=== PATIENT | female | born 1970 | race Caucasian/White ===

== ENCOUNTER → 2017-06-27 | Outpatient (CLI) | payer BC ==
[~2017-06-27] MED LIST: BCPILLS PO
== END | disposition home or self-care (01) ==
LOC: C.LAB1850 08:17
PROVIDERS: ATTEND Family Medicine
DX: Z00.00 Encounter for general adult medical examination without abnormal findings (principal); Z13.220 Encounter for screening for lipoid disorders

== ENCOUNTER → 2017-07-05 | Outpatient (CLI) | payer BC ==
--- NOTE | 2017-07-06 15:23 | MAMMOGRAPHY REPORT ---
BILATERAL DIGITAL SCREENING MAMMOGRAM TOMOSYNTHESIS WITH CAD: 07/05/2017 CLINICAL HISTORY: Routine screening. Patient has no complaints. TECHNIQUE: Breast tomosynthesis in addition to standard 2D mammography was performed. Current study was also evaluated with a Computer Aided Detection (CAD) system. COMPARISON: No prior exams were available for comparison. BREAST COMPOSITION: There are scattered areas of fibroglandular density in both breasts. FINDINGS: No suspicious mass, architectural distortion or cluster of microcalcifications is seen. T here are a few scattered benign-appearing microcalcifications. IMPRESSION: ACR BI-RADS CATEGORY 1: NEGATIVE There is no mammographic evidence of malignancy. Prior outside mammograms are currently being reques sara and if obtained they will be reviewed, compared to the current exam to assess for any more subtle changes, and an addendum will be made to this report. Otherwise, a 1 year screening mammogram is re commended. The patient will receive written notification of the results. Approximately 10% of breast cancers are not detected with mammography. A negative mammographic report should not delay biopsy if a clinically suggestive mass is present. Nai Armstrong M.D. ay/:07/05/2017 17:21:13 Asset Protection Associate: Cristina ALMENDAREZ(Seda)(Shital), [facility] letter sent: Normal 1/2 BI-RADS Code: ACR BI-RADS Category 1: Negative
== END | disposition home or self-care (01) ==
LOC: C.MAMM 11:20
PROVIDERS: ATTEND Family Medicine
DX: Z12.31 Encounter for screening mammogram for malignant neoplasm of breast (principal)

== ENCOUNTER 2020-06-23 09:12 | Observation (INO) ==
[2020-06-23] MEDS ORDERED: SODIUM CHLORIDE 0.9% 500 ML IV STA (09:32)
[2020-06-23] MEDS ORDERED: KETOROLAC TROMETHAMINE 15 MG/ML VIAL IV STA (11:09)
--- NOTE | 2020-06-23 11:12 | Emergency Department Note ---
Impression & Plan Acute appendicitis ED Provider Note CHIEF COMPLAINT: Right-sided abdominal pain HISTORY OF PRESENTING ILLNESS: This is a 50-year-old female who presents to the emergency department by private vehicle with complaint of right-sided abdominal pain for the past 4 days. Patient states the pain was initially intermittent, but it has been getting progressively worse and this morning was severe, states that it woke her up from sleep. She describes the pain as a constant aching, and rates the pain 8/10. She has had some intermittent nausea and decreased appetite, but denies any vomiting. She denies any fevers or chills. She denies any chest pain, chest tightness, shortness of breath, back pain, palpitations, dizziness or syncope, URI symptoms, loss of taste or smell. She denies any co ncerns for exposure to COVID-19. She denies any history of previous abdominal surgeries. REVIEW OF SYSTEMS: A complete 10 point review of systems was reviewed with the patient with pertinent positives and negatives as per history of present illness. All else were negative. PAST MEDICAL HISTORY: Depression, anxiety SOCIAL HISTORY: Lives at home with family, she denies tobacco use ALLERGIES: Reviewed in chart and with the patient PHYSICAL EXAM: CONSTITUTIONAL: Pleasant and cooperative. Nontoxic-appearing and in no acute distress. Mildly dehydrated, but otherwise well appearing and well nourished. HEENT: Normocephalic, atraumatic. Pharynx normal. Tacky mucous membranes. NECK: Supple, full active range of motion without discomfort. RESPIRATORY: Clear to auscultation bilaterally with no wheezing, crackles, rhonchi or stridor. Equal expansion bilaterally. CARDIOVASCULAR: Regular rate and rhythm with no murmurs, rubs or gallops. Normal peripheral perfusion. No edema. GASTROINTESTINAL: Tender to palpation in the right lower quadrant with slight guarding, no rebound tenderness. Abdomen is otherwise nontender, soft nondistended. No palpable masses or HSM. Bowel sounds present in all quadrants. No CVA tenderness bilaterally. MUSCULOSKELETAL: Full range of motion of all joints without discomfort. INTEGUMENTARY: No rash or other significant dermatologic conditions noted. NEUROLOGIC: Alert and oriented X 4 with normal affect. Normal strength and sensation in all 4 extremities. Normal speech. Normal gait observed. ED COURSE AND MEDICAL DECISION MAKING: CC: Patient presenting with complaint of right-sided abdominal pain DIFFERENTIAL DIAGNOSIS: Includes, but not limited to appendicitis, mesenteric adenitis, cholecystitis, cholelithiasis, pancreatitis, GERD, gastritis, gastroenteritis, PUD, ectopic , ovarian torsion, ovarian cyst, TOA, PID, small bowel obstruction, inflammatory bowel disease, IBS, constipation, among others. INTERPRETATION OF LABS: No leukocytosis, no anemia, normal platelets, no significant electrolyte abnormalities, normal renal function, normal liver enzymes and lipase. UA appears contaminated. Urine negative. MEDICATION RECONCILIATION: I attest that I have personally reviewed the patient's current medication list. INITIAL VITAL SIGNS REVIEW: I reviewed the patient's initial vital signs and interpret them as follows: T: Afebrile; BP: Hypertension; HR: Within normal limits; RR: Within normal limit; Pulse Ox: Within normal limits on room air. MDM SUMMARY: Patient was evaluated at bedside, history and physical exam performed. Patient is alert and oriented, in no acute distress, resting calmly in stretcher. She is afebrile and nontoxic-appearing, but does appear to be mildly dehydrated clinically. Abdomen is tender to palpation in the right lower quadrant with slight guarding, but no acute abdomen. She currently denies any nausea and is not vomiting. Orders were placed for labs, urinalysis and urine , IV fluid bolus for hydration, IV Toradol for pain, CT abdomen/pelvis with IV contrast to evaluate for abdominal pain. Patient discussed with Dr. Xavier, who agrees with my assessment, plan, and disposition. Labs and imaging reviewed as above, labs are fairly unremarkable, no leuko cytosis, no renal or liver impairment. UA appears contaminated. Urine negative. CT imaging reviewed noting an acute inflammatory process in the right lower quadrant which likely represents acute perforated appendicitis, no free air or abscess. I spoke on the phone with Tyler Martin PA-C with general surgery, who agrees to evaluate the patient and they will most likely take her to the OR this afternoon. Patient was covered with a dose of IV Zosyn prophylactically. Patient reassessed multiple times throughout ED stay, she has remained hemodynamically stable and afebrile and reports her pain is improved after the Toradol. The patient was updated on all results and plan for admission and probable surgery, all questions were answered to the best of my ability and the patient verbalized understanding and agreement with the plan. The patient was stable at time of admission. The chart was completed utilizing [employer] Speech voice recognition software. Grammatical errors, random word insertions, pronoun errors, and incomplete sentences are an occasional consequence of this system due to software limitations, ambient noise, and hardware issues. Any formal questions or concerns about the content, text, or information contained within the body of this dictation should be directly addressed to the nurse practitioner for clarification. Past Med/Surg History Medical History (Updated 06/24/20 @ 17:09 by BILL Lemos) Anxiety Difficulty reading due to visual problem Insomnia Medical marijuana use for anxiety Migraine headache hx of Osteoarthritis Surgical History (Updated 06/24/20 @ 08:35 by Charlotte Gross RN) History of laparoscopy S/P appendectomy (06/23/20) Laparoscopic Converted to Open Appendectomy - Anastacio Marshall DO, FACS S/P section x2 S/P tonsillectomy and adenoids S/P wisdom tooth extraction Family History Father Colorectal cancer, Onset Age: 72 Hypertension Daughter Diabetes Family history of diabetes mellitus Mother Hypertension Son Family history of diabetes mellitus Other Breast cancer No family history of adverse response to anesthesia Denies family history of Ovarian cancer Prostate cancer Myocardial infarction Social History Smoking Status: Never smoker Second Hand Exposure: No; Hx Alcohol Use: No Hx Substance Use: No Preferred Language: Tamazight Communication Ability: Effective Visual Impairment: No Limitations Hearing Ability: Normal Pest Control Chemical Technician Required: No Beliefs That Will Affect Care: None marital status: Current Living Situation: Spouse Current Living Situation Comment: Lives with and kids current occupational status: employed Other Information That Helps Us Care for You: No Feels Safe at Home: Yes Safety Concerns: Feels Safe At This Time Childhood Exposure to Second-Hand Smoke: No Dental Care, Regularly: Yes Physical Activity Frequency: Does not Exercise Seatbelt Use: always Sunscreen Use: Yes Assistive Devices: None Allergies Allergies Allergy/AdvReac Type Severity Reaction Status Date / Time morphine Allergy Intermediate Hives Verified 06/23/20 14:27 Home Meds Home Medications Medication Instructions Recorded Confirmed ascorbic acid-collagen [Collagen 1 cap PO QAM 06/19/20 06/23/20 Plus Vitamin C] multivitamin 1 tab PO QAM 06/19/20 06/23/20 Previous Rx's Medication Instructions Recorded lorazepam 0.5 mg tablet 0.25 - 0.5 mg PO BID PRN #60 tab 05/30/20 Results & Data (ED) Vital Signs Vital Signs - 24 hr 06/23/20 09:33 Temperature 37.1 C Temperature Source Temporal Artery Scan Pulse Rate 94 H Respiratory Rate 18 Blood Pressure 153/98 H Blood Pressure Mean 116 Pulse Oximetry 95 Sepsis Recent Fever Within 48 Hours No Sepsis New/Unexplained Change in Mental Status No Sepsis Action Taken by Nursing No Action Required Laboratory Data Result diagrams: 06/24/20 05:37 06/24/20 05:37 Lab Results 06/23/20 06/23/20 06/23/20 Range/Units 11:48 11:48 12:00 WBC 9.91 (4.8-10.8) K/uL RBC 4.20 (4.2-5.4) M/uL Hgb 13.6 (12.0-16.0) g/dL Hct 39.8 (37-47) % MCV 94.8 (80-100) fL MCH 32.4 (25-34) pg MCHC 34.2 (32-36) g/dL RDW Std Deviation 43.6 (36.4-46.3) fL RDW Coeff of Trent 12.6 (11.5-14.5) % Plt Count 323 (130-400) K/uL MPV 9.6 (7.4-10.4) fL Sodium 141 (136-145) mmol/L Potassium 4.0 (3.5-5.1) mmol/L Chloride 108 H (98-107) mmol/L Carbon Dioxide 27 (21-32) mmol/L Anion Gap 5.0 (3-11) BUN 12 (7-18) mg/dl Creatinine 0.85 (0.6-1.2) mg/dl Est Cr Clr Drug Dosing 81.3 ml/min Est GFR ( Amer) 92.6 Est GFR (Non-Af Amer) 79.9 BUN/Creatinine Ratio 13.5 (10-20) Glucose 91 (70-99) mg/dl Calcium 9.2 (8.5-10.1) mg/dl Total Bilirubin 0.3 (0.2-1) mg/dl AST 15 (15-37) U/L ALT 20 (12-78) U/L Alkaline Phosphatase 104 (45-117) U/L Total Protein 7.1 (6.4-8.2) gm/dl Albumin 2.9 L (3.4-5.0) gm/dl Globulin 4.2 H (2.5-4.0) gm/dl Albumin/Globulin Ratio 0.7 L (0.9-2) Lipase 84 (73-393) U/L Urine Color Yellow Urine Appearance Clear (Clear) Urine pH 5.0 (4.5-7.5) POC Urine pH (4.5-7.5) Ur Specific [place] 1.014 (1.000-1.030) Urine Protein Negative (Negative) POC Urine Protein (Negative) Urine Glucose (UA) Negative (Negative) POC Ur Glucose (UA) (Normal) Urine Ketones Negative (Negative) POC Urine Ketones (Negative) Urine Blood Negative (Negative) POC Urine Blood (Negative) Urine Nitrite Negative (Negative) POC Urine Nitrite (Negative) Urine Bilirubin Negative (Negative) POC Urine Bilirubin (Negative) Urine Urobilinogen Negative (Negative) POC Urine Urobilinogen (Normal) Ur Leukocyte Esterase Trace H (Negative) POC U Leukocyte Esteras (Negative) Urine WBC (Auto) 5-10 H (0-5) /hpf Urine RBC (Auto) 0-4 (0-4) /hpf U Hyaline Cast (Auto) 0 (0-5) /lpf U Epithel Cells (Auto) >30 H (0-5) /lpf Urine Bacteria (Auto) Negative (Negative) POC Ur Test (NEG) COVID-19 Eval Order SARS-CoV-2 (PCR) (Negative) Influenza Type A (PCR) (Neg) Influenza Type B (PCR) (Neg) RSV (RT-PCR) (Neg) 06/23/20 06/23/20 06/23/20 Range/Units 12:00 14:02 14:02 WBC (4.8-10.8) K/uL RBC (4.2-5.4) M/uL Hgb (12.0-16.0) g/dL Hct (37-47) % MCV (80-100) fL MCH (25-34) pg MCHC (32-36) g/dL RDW Std Deviation (36.4-46.3) fL RDW Coeff of [place] (11.5-14.5) % Plt Count (130-400) K/uL MPV (7.4-10.4) fL Sodium (136-145) mmol/L Potassium (3.5-5.1) mmol/L Chloride (98-107) mmol/L Carbon Dioxide (21-32) mmol/L Anion Gap (3-11) BUN (7-18) mg/dl Creatinine (0.6-1.2) mg/dl Est Cr Clr Drug Dosing ml/min Est GFR ( Amer) Est GFR (Non-Af Amer) BUN/Creatinine Ratio (10-20) Glucose (70-99) mg/dl Calcium (8.5-10.1) mg/dl Total Bilirubin (0.2-1) mg/dl AST (15-37) U/L ALT (12-78) U/L Alkaline Phosphatase (45-117) U/L Total Protein (6.4-8.2) gm/dl Albumin (3.4-5.0) gm/dl Globulin (2.5-4.0) gm/dl Albumin/Globulin Ratio (0.9-2) Lipase (73-393) U/L Urine Color Urine Appearance (Clear) Urine pH (4.5-7.5) POC Urine pH 5 (4.5-7.5) Ur Specific [place] (1.000-1.030) Urine Protein (Negative) POC Urine Protein Trace H (Negative) Urine Glucose (UA) (Negative) POC Ur Glucose (UA) Normal (Normal) Urine Ketones (Negative) POC Urine Ketones Negative (Negative) Urine Blood (Negative) POC Urine Blood 50 H (Negative) Urine Nitrite (Negative) POC Urine Nitrite Negative (Negative) Urine Bilirubin (Negative) POC Urine Bilirubin Negative (Negative) Urine Urobilinogen (Negative) POC Urine Urobilinogen Normal (Normal) Ur Leukocyte Esterase (Negative) POC U Leukocyte Esteras 1+ H (Negative) Urine WBC (Auto) (0-5) /hpf Urine RBC (Auto) (0-4) /hpf U Hyaline Cast (Auto) (0-5) /lpf U Epithel Cells (Auto) (0-5) /lpf Urine Bacteria (Auto) (Negative) POC Ur Test NEG (NEG) COVID-19 Eval Order CovFluRsv at [facility] SARS-CoV-2 (PCR) NEGATIVE (Negative) Influenza Type A (PCR) Negative (Neg) Influenza Type B (PCR) Negative (Neg) RSV (RT-PCR) Negative (Neg) Administered Medications Acetaminophen (Acetaminophen 325 Mg Tab) 650 mg PO Q4H PRN PRN Reason: Pain Stop: 07/24/20 12:22 Last Admin: 06/24/20 12:44 Dose: 650 mg Documented by: [id number] Diphenhydramine HCl (Diphenhydramine 50 Mg/Ml Vial) 12.5 mg IV Q6H PRN PRN Reason: Itching Stop: 07/23/20 19:56 Last Admin: 06/24/20 00:43 Dose: 12.5 mg Documented by: [id number] Hydromorphone HCl (Hydromorphone Inj 0.5 Mg/0.5 Ml Syr) 0.5 mg IV Q1H PRN PRN Reason: Pain Stop: 07/07/20 19:56 Last Admin: 06/24/20 00:44 Dose: 0.5 mg Documented by: [id number] Lactated Ringer's (Lr) 1,000 mls @ 125 mls/hr IV .Q8H YOHANA Stop: 07/23/20 20:59 Last Admin: 06/24/20 12:05 Dose: 125 mls/hr Documented by: [id number] Infusion: 06/24/20 09:53 Dose: 125 mls/hr Documented by: [id number] Infusion: 06/24/20 08:32 Dose: 125 mls/hr Documented by: [id number] Infusion: 06/24/20 03:24 Dose: 0 mls/hr Documented by: [id number] Admin: 06/23/20 20:44 Dose: 125 mls/hr Documented by: [id number] Piperacillin Sod/Tazobactam (Sod 3.375 gm/ Dextrose) 115 mls @ 28.75 mls/hr IV Q8H YOHANA; Protocol Stop: 07/03/20 20:29 Last Admin: 06/24/20 14:00 Dose: 28.8 mls/hr Documented by: [id number] Infusion: 06/24/20 07:39 Dose: 0 mls/hr Documented by: [id number] Admin: 06/24/20 03:24 Dose: 28.8 mls/hr Documented by: [id number] Infusion: 06/24/20 00:51 Dose: 0 mls/hr Documented by: [id number] Admin: 06/23/20 20:44 Dose: 28.8 mls/hr Documented by: [id number] Ketorolac Tromethamine (Ketorolac 30 Mg/Ml Vial) 30 mg IV Q6H PRN PRN Reason: Pain & Pre PT Stop: 06/28/20 19:56 Last Admin: 06/24/20 15:39 Dose: 30 mg Documented by: [id number] Admin: 06/24/20 07:53 Dose: 30 mg Documented by: [id number] Admin: 06/23/20 20:44 Dose: 30 mg Documented by: [id number] Lorazepam (Lorazepam 0.5 Mg Tab) 0.5 mg PO BID PRN PRN Reason: anxiety Stop: 07/23/20 19:56 Last Admin: 06/24/20 07:52 Dose: 0.5 mg Documented by: [id number] Admin: 06/23/20 21:53 Dose: 0.5 mg Documented by: [id number] Discontinued Medications Acetaminophen (Acetaminophen 325 Mg Tab) 650 mg PO Q4H STA Stop: 06/24/20 07:44 Last Admin: 06/24/20 07:52 Dose: 650 mg Documented by: [id number] Bupivacaine HCl (Bupivacaine 0.5 % 5 Mg/1 Ml Mpf 30ml Vial) Confirm Administered Dose 30 ml .ROUTE .STK-MED ONE Stop: 06/23/20 15:53 Last Admin: 06/23/20 18:09 Dose: 30 ml Documented by: [id number] Bupivacaine Liposome (Bupivacaine Liposome 1.3% 266 Mg/20 Ml Vial) Confirm Administered Dose 266 mg .ROUTE .STK-MED ONE Stop: 06/23/20 17:18 Last Admin: 06/23/20 18:09 Dose: 266 mg Documented by: [id number] Sodium Chloride (Nss) 500 mls @ 999 mls/hr IV .Q31M STA Stop: 06/23/20 10:02 Last Infusion: 06/23/20 12:37 Dose: 0 mls/hr Documented by: [id number] Admin: 06/23/20 12:04 Dose: 999 mls/hr Documented by: [id number] Piperacillin Sod/Tazobactam Sod (Zosyn) 4.5 gm in 120 mls @ 240 mls/hr IV NOW ONE Stop: 06/23/20 14:08 Last Infusion: 06/23/20 14:40 Dose: 0 mls/hr Documented by: [id number] Admin: 06/23/20 14:09 Dose: 240 mls/hr Documented by: [id number] Promethazine HCl 12.5 mg/ (Sodium Chloride) 50.5 mls @ 204 mls/hr IV ONCE PRN PRN Reason: PACU Use Only-Nausea/Vomiting Stop: 06/24/20 02:59 Last Infusion: 06/23/20 20:57 Dose: 0 mls/hr Documented by: [id number] Admin: 06/23/20 19:27 Dose: 204 mls/hr Documented by: [id number] Ioversol (Optiray 300 100ml) 90 ml IV ONCE ONE Stop: 06/23/20 12:44 Last Admin: 06/23/20 12:44 Dose: 90 ml Documented by: [id number] Ketorolac Tromethamine (Ketorolac Tromethamine 15 Mg/Ml Vial) 15 mg IV NOW STA Stop: 06/23/20 11:10 Last Admin: 06/23/20 12:05 Dose: 15 mg Documented by: [id number] Ondansetron HCl (Ondansetron Inj 2 Mg/Ml 2 Ml Vial) 4 mg IV ONCE PRN PRN Reason: PACU Use Only-Nausea/Vomiting Stop: 06/23/20 23:55 Last Admin: 06/23/20 18:45 Dose: 4 mg Documented by: [id number] Discharge Plan Visit Data Chief Complaint: Flank Pain Stated Complaint: SEVERE PAIN IN SIDE ED Provider: Yong Xavier ED Midlevel Provider: Dian Reynoso Discharge Problem: Acute appendicitis Patient Disposition: Admitted As Inpatient Discharge Instructions Interventions: ED Discharge Assessment Last Done: 06/23/20 15:24 Discharge Problem: Acute appendicitis Qualifiers: Acute appendicitis type: with localized peritonitis Appendicitis gangrene presence: without gangrene Appendicitis perforation presence: with perforation Appendicitis abscess presence: without abscess Qualified Code(s): K35.32 - Acute appendicitis with perforation and localized peritonitis, without abscess
[2020-06-23 12:07] LABS: Hematocrit (blood only) 39.8 % (37-47); Hemoglobin 13.6 g/dL (12.0-16.0); Mean Corpuscular Hemoglobin 32.4 pg (25-34); Mean Corpuscular Hgb Conc 34.2 g/dL (32-36); Mean Corpuscular Volume 94.8 fL (80-100); Mean Platelet Volume 9.6 fL (7.4-10.4); Platelet Count 323 K/uL (130-400); RDW Coefficient of Variation 12.6 % (11.5-14.5); RDW Standard Deviation 43.6 fL (36.4-46.3); White Blood Count 9.91 K/uL (4.8-10.8)
[2020-06-23 12:11] LABS: POC Urine Bilirubin Negative (Negative); POC Urine Blood 50 (Negative); POC Urine Glucose Normal (Normal); POC Urine Ketones Negative (Negative); POC Urine Leukocytes 1+ (Negative); POC Urine Nitrite Negative (Negative); POC Urine Protein Trace (Negative); POC Urine Urobilinogen Normal (Normal); POC Urine pH 5 (4.5-7.5)
[2020-06-23 12:17] LABS: Appearance Urine Clear (Clear); Bacteria Urine Automated Negative (Negative); Bilirubin Urine Negative (Negative); Blood Urine Negative (Negative); Cast Urine Automated 0 /lpf (0-5); Color Urine Yellow; Epithelial Cell Urine Auto >30 /lpf (0-5); Glucose Urine UA Negative (Negative); Ketones Urine Negative (Negative); Leukocyte Esterase Urine Trace (Negative); Nitrite Urine Negative (Negative); Protein Urine Negative (Negative); RBC Urine Automated 0-4 /hpf (0-4); Specific Gravity Urine 1.014 (1.000-1.030); Urobilinogen Urine Negative (Negative)
[2020-06-23 12:32] LABS: Albumin Level 2.9 gm/dl (3.4-5.0); BUN Creatinine Ratio 13.5 (10-20); Calcium 9.2 mg/dl (8.5-10.1); Creatinine Clr Calc Pharmacy 81.3 ml/min; Est GFR (African American) 92.6; Est GFR (Non-African American) 79.9
[2020-06-23 12:35] LABS: Albumin Globulin Ratio 0.7 (0.9-2); Bilirubin,Total 0.3 mg/dl (0.2-1); Globulin 4.2 gm/dl (2.5-4.0); Total Protein 7.1 gm/dl (6.4-8.2)
[2020-06-23] MEDS ORDERED: OPTIRAY 300 100mL IV ONE (12:43)
--- NOTE | 2020-06-23 13:17 | CT Scan Report ---
CT SCAN OF THE ABDOMEN AND PELVIS WITH IV CONTRAST CLINICAL HISTORY: Right lower quadrant abdominal pain. COMPARISON STUDY: No priors. TECHNIQUE: Following the IV administration of 90 cc of Optiray 300, CT scan of the abdomen and pelvi s is performed from the lung bases to the proximal femora. Images are reviewed in the axial, sagittal , and coronal planes. IV contrast was administered without complication. A dose lowering technique wa s utilized adhering to the principles of ALARA. CT DOSE: 657.88 mGy.cm FINDINGS: Lung bases: The heart is normal in size and without pericardial effusion. The lung bases are clear. Liver: The contrast-enhanced liver is normal in size, contour, and attenuation. Focal fatty infiltrat ion is seen adjacent to the falciform ligament. There is no intrahepatic biliary ductal dilatation. T he hepatic veins and portal veins are patent. An 8 mm cyst is noted in the right lobe. Gallbladder: Unremarkable. Spleen: Normal in size and attenuation. Pancreas: Unremarkable. Adrenal glands: Unremarkable. Kidneys: The contrast enhanced kidneys are normal in size and without hydronephrosis. The kidneys enh ance symmetrically. Abdominal vasculature: The abdominal aorta is normal in course and caliber. Bowel: There is no bowel obstruction. There is an inflammatory process centered in the right lower qu adrant involving the cecum and terminal ileum. A portion of an abnormal appendix is likely seen on im age #270 measuring 1.1 cm in diameter. No organized fluid collection is seen to indicate abscess. Peritoneum: There is no intraperitoneal free air or abdominal ascites. There is a small fat-containin g umbilical hernia. Lymphadenopathy: Mildly enlarged mesenteric lymph nodes measure up to 9 mm in short axis. Pelvic viscera: The bladder and uterus are normal as visualized. A curvilinear tubular and fluid-fill ed structure in the left lower quadrant on image #329 measures up to 5 cm. This appears to connect to the left ovary and is typical in appearance for hydrosalpinx. Skeletal structures: No lytic or blastic lesions are seen. Sclerotic change is noted in the right sac roiliac joint. IMPRESSION: 1. There is an acute inflammatory process identified in the right lower quadrant, with an abnormal ap pendix suspected. This likely represents acute perforated appendicitis, and this is the diagnosis of exclusion. A primary ileal or cecal abnormality is considered less likely. Surgical assessment is adv ised. 2. No intraperitoneal free air is identified and there is no organized fluid collection to suggest ab scess. 3. Mildly enlarged mesenteric lymph nodes are likely reactive. 4. There is evidence of hydrosalpinx in the left pelvis. Nonemergent pelvic ultrasound and gynecology follow-up is recommended. 5. Additional findings as above. ACT 112: Positive. There are findings on this exam that require communication between the performing entity and the patient following Patient Test Result Information Act ([place] Act 112) guidelines. Electronically signed by: Fabian Fritz M.D. 06/23/2020 1:15 PM
[2020-06-23] MEDS ORDERED: PIPERACILL/TAZOBAC CONSULT ACTIVE PRN ×2 (13:39→19:57)
[2020-06-23] MEDS ORDERED: PIPERACILLIN/TAZOBACTAM 4.5 GM/120 ML BAG IV ONE (13:39)
--- NOTE | 2020-06-23 14:29 | History & Physical Report ---
Date of Service June 23, 2020 Assessment & Plan (1) Acute appendicitis: Admission and Anticipated Discharge Date Admission Date: Likely early perforation by CT, no fluid or abscess. Will plan for laparoscopic appendectomy this afternoon by Dr. Marshall. History of Present Illness Primary Care Provider: Micheline Quezada MD 50 y/o female with abdominal pain that began 4 days ago and has been increasing. Woke up this morning with severe RLQ pain. No fevers or chills. Was scheduled for screening colonoscopy later this week and had recent COVID tesing. Had some tea early this morning, nothing to eat since yesterday. Allergies Allergy/AdvReac Type Severity Reaction Status Date / Time morphine Allergy Intermediate Hives Verified 06/23/20 14:27 Home Medications Medication Instructions Recorded Confirmed Type lorazepam 0.5 mg tablet 0.25 - 0.5 mg PO BID PRN #60 tab 05/30/20 06/23/20 Rx ascorbic acid-collagen [Collagen 1 cap PO QAM 06/19/20 06/23/20 History Plus Vitamin C] multivitamin 1 tab PO QAM 06/19/20 06/23/20 History Past Med/Surg History Medical History Anxiety Difficulty reading due to visual problem Insomnia Medical marijuana use for anxiety Migraine headache hx of Osteoarthritis Surgical History History of laparoscopy S/P section x2 S/P tonsillectomy and adenoids S/P wisdom tooth extraction Family History Father Colorectal cancer, Onset Age: 72 Hypertension Daughter Diabetes Family history of diabetes mellitus Mother Hypertension Son Family history of diabetes mellitus Other Breast cancer No family history of adverse response to anesthesia Denies family history of Ovarian cancer Prostate cancer Myocardial infarction Social History Smoking Status: Never smoker Second Hand Exposure: No; Hx Alcohol Use: Yes Alcohol type: beer, wine and hard liquor Alcohol Intake Frequency: 4 or More x per/Week Hx Substance Use: Yes (smokes marijuana (medical marijuana card)) Prescribed Medications: Marijuana Preferred Language: [place] Communication Ability: Effective Visual Impairment: No Limitations Hearing Ability: Normal Communications Department Chair Required: No Beliefs That Will Affect Care: None marital status: Current Living Situation: Spouse and Family Current Living Situation Comment: Lives with and kids current occupational status: employed Feels Safe at Home: Yes Childhood Exposure to Second-Hand Smoke: No Dental Care, Regularly: Yes Physical Activity Frequency: Does not Exercise Seatbelt Use: always Sunscreen Use: Yes Assistive Devices: Contacts Review of Systems Constitutional: no fever and no chills Gastrointestinal: + abdominal pain; no nausea and no vomiting Physical Exam Constitutional: WD/WN, vitals as above Respiratory: normal respiratory effort, lungs clear to auscultation Cardiovascular: RRR, no murmur, no edema Gastrointestinal (Abdomen): Inspection/Auscultation: abdomen not distended Percussion/Palpation: + abdomen tender (RLQ), + guarding and abdomen soft Results & Data Results & Data ([facility]) Vital Signs (Past 12 Hours) Vital Signs Temp Pulse Resp BP BP Pulse Ox 06/23/20 14:02 150/93 H 06/23/20 11:13 153/98 H 06/23/20 09:33 37.1 C 94 H 18 153/98 H 95 Supervising Physician Co-Signing Physician Notes Patient seen and examined, labs and imaging reviewed, agree with above. 50-year-old otherwise healthy female started with right lower quadrant abdominal pain on that is progressively worsened. On exam she is afebrile with stable vitals. Her abdomen is soft, but tender to palpation in the right lower quadrant with localized guarding. WBC normal. Personally viewed the CT scan and agree with the interpretation of a dilated appendix with stranding and extraluminal air consistent with a likely perforated appendicitis with no phlegmon or abscess. We discussed her options for the treatment of perforated acute appendicitis to include antibiotics versus surgery. At this point we will plan for surgery, but I did inform her that if there is any significant inflammation we would not proceed with ileocecectomy unless absolutely necessary. Plan for laparoscopic appendectomy, possible open The risk of the procedure were discussed to include but not limited to bleeding, infection, open surgery, abscess, demonstrating structures, need for future more extensive surgery, and the risk of anesthesia Antibiotics being administered in ER She was scheduled for a colonoscopy on , and this will have to be delayed for 4 to 6 weeks. Of note she did have a negative Covid test that was performed on in preparation for her colonoscopy. PG Care Time/CCT Total # of Minutes Spent Total Time Spent with Patient: Total time spent is greater than 50% in coordination of care (as documented) at patient's floor/unit and/or counseling patient: Coding Level of Care Code None Diagnoses Acute appendicitis K35.80
--- NOTE | 2020-06-23 15:08 | Anesthesiology Consultation ---
Date of Service June 23, 2020 Assessment & Plan (1) Encounter for pre-operative examination: Chart Review Chart Review: Acceptable Risk for Surgery History Surgery Operation Date: 06/23/20 09:00 Proposed Procedures p Laparoscopic Appendectomy - Anastacio Marshall DO, FACS Height/Weight Height: 5 ft 3 in Weight: 84.1 kg Allergies Allergy/AdvReac Type Severity Reaction Status Date / Time morphine Allergy Intermediate Hives Verified 06/23/20 14:27 Medications Home Medications Medication Instructions Recorded Confirmed Last Taken lorazepam 0.5 mg tablet 0.25 - 0.5 mg PO BID PRN #60 tab 05/30/20 06/23/20 Unknown ascorbic acid-collagen [Collagen 1 cap PO QAM 06/19/20 06/23/20 06/22/20 Plus Vitamin C] multivitamin 1 tab PO QAM 06/19/20 06/23/20 06/23/20 Past Medical History Medical History Anxiety Difficulty reading due to visual problem Insomnia Medical marijuana use for anxiety Migraine headache hx of Osteoarthritis Past Family History Family History Father Colorectal cancer, Onset Age: 72 Hypertension Daughter Diabetes Family history of diabetes mellitus Mother Hypertension Son Family history of diabetes mellitus Other Breast cancer No family history of adverse response to anesthesia Denies family history of Ovarian cancer Prostate cancer Myocardial infarction Past Surgical History Surgical History History of laparoscopy S/P section x2 S/P tonsillectomy and adenoids S/P wisdom tooth extraction Social History Smoking Status: Never smoker Hx Alcohol Use: Yes Alcohol type: beer, wine and hard liquor alcohol intake frequency: a few times a week Hx Substance Use: Yes (smokes marijuana (medical marijuana card)) substance use type: marijuana Physical Exam Vital Signs Last Vital Signs Temp 37.1 C 06/23/20 09:33 Pulse 94 H 06/23/20 09:33 Resp 18 06/23/20 09:33 BP 150/93 H 06/23/20 14:02 Pulse Ox 95 06/23/20 09:33 Testing Laboratory Results 06/23/20 11:48 06/23/20 11:48 Urine Color Yellow 06/23/20 12:00 Urine Appearance Clear (Clear) 06/23/20 12:00 Urine pH 5.0 (4.5-7.5) 06/23/20 12:00 Ur Specific Zortman 1.014 (1.000-1.030) 06/23/20 12:00 Urine Protein Negative (Negative) 06/23/20 12:00 Urine Glucose (UA) Negative (Negative) 06/23/20 12:00 Urine Ketones Negative (Negative) 06/23/20 12:00 Urine Nitrite Negative (Negative) 06/23/20 12:00 Ur Leukocyte Esterase Trace (Negative) H 06/23/20 12:00 Urine WBC (Auto) 5-10 /hpf (0-5) H 06/23/20 12:00 Urine RBC (Auto) 0-4 /hpf (0-4) 06/23/20 12:00 U Hyaline Cast (Auto) 0 /lpf (0-5) 06/23/20 12:00 U Epithel Cells (Auto) >30 /lpf (0-5) H 06/23/20 12:00 Urine Bacteria (Auto) Negative (Negative) 06/23/20 12:00 06/23/20 12:00 POC Ur Test NEG
[2020-06-23 15:30] LABS: Influenza A virus by PCR Negative (Neg); Influenza B virus by PCR Negative (Neg); RSV by PCR Negative (Neg); SARS CoV2 RNA(COVID-19) InHosp NEGATIVE (Negative)
[2020-06-23] MEDS ORDERED: MIDAZOLAM HCL 1 MG/ML 2ML VIAL ONE (15:45)
[2020-06-23] MEDS ORDERED: fentaNYL citrate 100 MCG/2 ML VIAL ONE ×2 (15:45→16:43)
[2020-06-23] MEDS ORDERED: SUGAMMADEX SODIUM 200 MG/2 ML VIAL IV ONE (15:49)
[2020-06-23] MEDS ORDERED: BUPIVACAINE 0.5 % 5 MG/1 ML MPF 30ML VIAL ONE (15:52)
[2020-06-23] MEDS ORDERED: ONDANSETRON INJ 2 MG/ML 2 ML VIAL IV PRN ×2 (15:55→19:57)
[2020-06-23] MEDS ORDERED: HYDROmorphone INJ 2 MG/ML SYR/VIAL IV PRN (15:55)
[2020-06-23] MEDS ORDERED: ATROPINE SULFATE 0.1 MG/ML 10ML SYR IV PRN (15:55)
[2020-06-23] MEDS ORDERED: ePHEDrine sulfate 50 MG/ML AMP IV PRN (15:55)
[2020-06-23] MEDS ORDERED: fentaNYL citrate 100 MCG/2 ML VIAL IV PRN (15:55)
[2020-06-23] MEDS ORDERED: ROCURONIUM BROMIDE 10 MG/ML 5 ML VIAL IV ONE (16:18)
[2020-06-23] MEDS ORDERED: LIDOCAINE HCL 2% 2 ML VIAL/AMP(20MG/ML) INFIL ONE (16:18)
[2020-06-23] MEDS ORDERED: DEXAMETHASONE SOD INJ 4 MG/ML VIAL ONE (16:18)
[2020-06-23] MEDS ORDERED: ONDANSETRON INJ 2 MG/ML 2 ML VIAL ONE (16:18)
[2020-06-23] MEDS ORDERED: PROPOFOL IV EMULSION 10 MG/ML 20 ML VIAL IV ONE (16:18)
[2020-06-23] MEDS ORDERED: KETAMINE 50 MG/5 ML SYRINGE ONE (17:12)
[2020-06-23] MEDS ORDERED: BUPIVACAINE LIPOSOME 1.3% 266 MG/20 ML VIAL ONE (17:17)
[2020-06-23] MEDS ORDERED: HYDROmorphone INJ 2 MG/ML SYR/VIAL ONE (17:30)
--- NOTE | 2020-06-23 18:25 | Operative Report ---
PG Post Operative Report Pre & Post Diagnosis Operation Date: 06/23/20 09:00 Pre-Op Diagnosis: Perforated Appendix Post-Op Diagnosis: Perforated Appendix I identified the patient and participated in the time-out.: Yes Procedure Operation Date: 06/23/20 09:00 Actual Procedures p Laparoscopic Converted to Open Appendectomy(Not Applicable) - Anastacio love DO, FACS Surgeon Anastacio Marshall DO, SAMREEN Test Driver Greg Martin Estimated Blood Loss 10 Findings Consistent with Post-Op Diagnosis Perforated retrocecal appendix, failed to make progress laparoscopically. Right colon mobilized until it reached midline. Infraumbilical incision extended, appendectomy completed open. Specimens Appendix Drains 10 mm MICHAEL drain right lower quadrant Anesthesia Type General Complications none Disposition Accompanied Patient To Recovery: No Disposition: Recovery Room Indications 50-year-old female with perforated appendicitis on CT imaging with symptoms starting 5 days ago, plan for laparoscopic appendectomy, possible open. The risks of the procedure were discussed, all questions were answered, and the patient agreed to proceed with surgery as planned. Description of Procedure The patient was properly identified, consented, and taken to the operating room where she was placed in the supine position. General endotracheal anesthesia was induced. SCDs and a safety belt were placed. Preoperative antibiotics were administered. A Montano catheter was not placed. The patient's abdomen was prepped and draped in the standard sterile fashion. Surgical timeout was performed and all parties were in agreement that this was the correct patient and procedure to be performed and we continued as planned. A curvilinear infraumbilical incision was made with electrocautery and deepened down to the fascia with blunt dissection. The base of the umbilicus was grasped with a Mara and elevated towards the ceiling. An incision was made in the midline fascia with a knife and entry into the peritoneum was confirmed. Stay suture of 0 Vicryl was placed and a Serra trocar was inserted. The abdomen was insufflated with carbon dioxide which the patient tolerated without incident. The laparoscope was inserted and no damage from initial trocar placement was noted, no gross abnormalities were noted within the 4 quadrants the abdomen. 5 mm ports were then placed in the left lower quadrant with care not to damage the epigastric vessels, and in the suprapubic midline with care not to damage the bladder. The patient was placed in Trendelenburg position and rotated towards the left. The small bowel was swept away from the right lower quadrant. The appendix appeared to be retrocecal. There was significant inflammation around the cecum and small bowel. We were able to identify what we thought was the base of the appendix and dissected away from some of the surrounding structures. This was slow and tedious. Though we did not run into trouble, we were not making much progress. We attempted to mobilize the right colon by taking down the white line of Toldt. As we mobilized the colon enough to reach the midline, and still failed to progress any further laparoscopically without the risk of injury, we elected to convert to an open procedure. Laparoscopy was ceased and the infraumbilical incision was extended inferiorly. A wound protector was placed. The cecum was grasped and brought into the wound and we were able to identify the appendix. What we initially thought was the base of the appendix was actually the tip. Using careful dissection along with some finger fracture we were able to free the appendix up from the surrounding tissue. There was some purulent drainage represent an abscess. The mesoappendix was controlled with 3-0 silk ligatures. The base of the appendix appeared healthy and soft. A rodriguez loaded endoscopic stapler was then used to divide the appendix at its base. Hemostasis was good. The appendix was passed off the table as specimen. During the dissection a small area along the terminal ileum involving ligament of Treves was dissected away. There was a small serosal tear there. This was closed with interrupted silk Lembert sutures. The right lower quadrant and pelvis were irrigated. A 10 mm flat MICHAEL drain was placed in the right lower quadrant and exited through the left lower quadrant incision. This was secured in place with a 2-0 nylon suture. The fascia was then closed with a running 0 PDS suture x2. Exparel mixed with 0.5% Marcaine was injected in the fascia and subcutaneous tissues. The wound was irrigated. The midline wound was closed with interrupted 3-0 Vicryl deep dermal sutures followed by henrietta. The remaining 5 mm port site was closed with a staple. Sterile dressings were applied. The patient was extubated in the operating room and taken to the PACU where she recovered without apparent incident. All sponge, instrument and needle counts were correct at the conclusion of the procedure. The patient tolerated the procedure well. The physician's captain assistant was present and scrubbed for the entire to the case. He was critical in positioning the patient, prepping and draping, retraction and exposure, driving the laparoscope, removal of the appendix and control of the mesoappendix, closure the incisions, placement of the dressings. I attest to the content of the Intraoperative Record and any orders documented therein. Any exceptions are noted below.
[2020-06-23] MEDS ORDERED: GLYCOPYRROLATE 0.2 MG/ML VIAL ONE (18:36)
[2020-06-23] MEDS ORDERED: NEOSTIGMINE METHYLSULFATE 5 MG/5 ML SYR ONE (18:36)
[2020-06-23] MEDS ORDERED: PROMETHAZINE HCL 12.5 MG in SODIUM CHLORIDE 0.9% 50 ML IV PRN (18:58)
--- NOTE | 2020-06-23 19:18 | Anesthesiology Progress Note ---
Date of Service June 23, 2020 Anesthesia Post Procedure Vital Signs Vital Signs: Temp Pulse Pulse Pulse Resp BP BP 06/23/20 19:00 89 12 154/90 H 06/23/20 18:50 89 14 151/92 H 06/23/20 18:40 87 13 146/89 H 06/23/20 18:31 36.8 C 89 14 136/83 06/23/20 15:44 37.5 C 82 16 125/85 06/23/20 14:02 150/93 H 06/23/20 11:13 153/98 H 06/23/20 09:33 37.1 C 94 H 18 153/98 H Pulse Ox 06/23/20 19:00 89 L 06/23/20 18:50 97 06/23/20 18:40 96 06/23/20 18:31 98 06/23/20 15:44 97 06/23/20 14:02 06/23/20 11:13 06/23/20 09:33 95 Pain Intensity Abdomen: Pain Intensity: 3 Transfer of Care Handoff Completed per policy Notes Mental Status: alert / awake / arousable and participated in evaluation Patient Amnestic to Procedure: Yes Nausea / Vomiting: adequately controlled Pain: adequately controlled Airway Patency, RR, SpO2: stable & adequate BP & HR: stable & adequate Hydration State: stable & adequate Anesthetic Complications: no major complications apparent and Pt Satisfied with anesthetic care
[2020-06-23] MEDS: LACTATED RINGER'S 1,000 ML IV SCH (20:44)
[2020-06-23] MEDS: PIPERACILLIN/TAZOBACTAM 3.375 GM in DEXTROSE 5% 100 ML IV SCH (20:44)
[2020-06-23] MEDS: KETOROLAC 30 MG/ML VIAL IV PRN (20:44)
[2020-06-23] MEDS: LORazepam 0.5 MG TAB PO PRN (21:53)
[2020-06-24] MEDS: diphenhydrAMINE 50 MG/ML VIAL IV PRN ×2 (00:43→19:28)
[2020-06-24] MEDS: HYDROmorphone INJ 0.5 MG/0.5 ML SYR IV PRN ×2 (00:44→18:25)
[2020-06-24] MEDS: PIPERACILLIN/TAZOBACTAM 3.375 GM in DEXTROSE 5% 100 ML IV SCH ×3 (03:24→19:28)
[2020-06-24 06:25] LABS: Hematocrit (blood only) 37.5 % (37-47); Hemoglobin 12.9 g/dL (12.0-16.0); Immature Granulocytes # (auto) 0.02 K/uL (0.00-0.02); Immature Granulocytes % (auto) 0.2 %; Lymphocytes # (auto) 0.78 K/uL (1.2-3.4); Lymphocytes % (auto) 6.8 %; Mean Corpuscular Hemoglobin 32.7 pg (25-34); Mean Corpuscular Hgb Conc 34.4 g/dL (32-36); Mean Corpuscular Volume 94.9 fL (80-100); Monocytes # (auto) 0.74 K/uL (0.11-0.59); Monocytes % (auto) 6.4 %; Neutrophils # (auto) 9.98 K/uL (1.4-6.5); Neutrophils % (auto) 86.6 %; Platelet Count 375 K/uL (130-400); RDW Coefficient of Variation 12.3 % (11.5-14.5); Red Blood Count 3.95 M/uL (4.2-5.4); White Blood Count 11.52 K/uL (4.8-10.8)
[2020-06-24 06:55] LABS: BUN Creatinine Ratio 9.8 (10-20); Calcium 8.1 mg/dl (8.5-10.1); Creatinine Clr Calc Pharmacy 92.4 ml/min; Est GFR (African American) 104.3; Potassium 4.1 mmol/L (3.5-5.1)
[2020-06-24] MEDS ORDERED: ACETAMINOPHEN 325 MG TAB PO STA (07:43)
--- NOTE | 2020-06-24 07:49 | Surgery Progress Note ---
Date of Service June 24, 2020 Assessment & Plan (1) Acute appendicitis: WBC 11 continue IV Zosyn labs in AM clears for now Admission and Anticipated Discharge Date Admission Date: June 23, 2020 Supervising Physician Co-Signing Physician Notes Patient seen and examined, labs reviewed, agree with above. POD #1 laparoscopic converted to open appendectomy for perforated retrocecal appendicitis. Overall doing well, had some pretty significant pain overnight but was controlled with meds. The pain is steadily improving. She is feeling a little hungrier now, and the pain she had upon admission is gone. On exam she is afebrile with stable vitals. Her abdomen is soft, appropriately tender to palpation. Dressing with some strikethrough but no evidence of infection. White blood cell count 11.52, other labs unremarkable. We will continue on IV antibiotics, advance diet as tolerated, keep MICHAEL in place. Potential discharge in 24 to 48 hours if patient continues to improve. She will be discharged on oral antibiotics. Subjective c/o pain, little better this AM, no nausea Physical Exam Gastrointestinal (Abdomen): Inspection/Auscultation: + abdominal surgical drain present (100 cc total) Percussion/Palpation: abdomen soft Results & Data ([facility]) Vital Signs (Past 12 Hours) Vital Signs Temp Pulse Pulse Resp BP BP Pulse Ox 06/24/20 07:45 36.8 C 83 16 130/80 93 06/24/20 04:22 36.8 C 97 H 18 115/74 92 06/23/20 23:37 36.9 C 96 H 18 126/83 96 06/23/20 21:35 36.9 C 92 H 18 129/80 97 06/23/20 20:35 36.9 C 93 H 17 156/94 H 99 06/23/20 20:05 36.7 C 89 18 157/90 H 98 PG Care Time/CCT Total # of Minutes Spent Total Time Spent with Patient: Total time spent is greater than 50% in coordination of care (as documented) at patient's floor/unit and/or counseling patient: Coding Level of Care Code None Diagnoses Acute appendicitis K35.80
[2020-06-24] MEDS: LORazepam 0.5 MG TAB PO PRN (07:52)
[2020-06-24] MEDS: KETOROLAC 30 MG/ML VIAL IV PRN ×2 (07:53→15:39)
[2020-06-24] MEDS: LACTATED RINGER'S 1,000 ML IV SCH ×2 (12:05→19:28)
[2020-06-24] MEDS: ACETAMINOPHEN 325 MG TAB PO PRN (12:44)
[2020-06-25] MEDS: PIPERACILLIN/TAZOBACTAM 3.375 GM in DEXTROSE 5% 100 ML IV SCH ×2 (03:24→12:53)
[2020-06-25] MEDS: LACTATED RINGER'S 1,000 ML IV SCH ×2 (03:24→09:07)
[2020-06-25] MEDS: KETOROLAC 30 MG/ML VIAL IV PRN (03:24)
[2020-06-25] MEDS: LORazepam 0.5 MG TAB PO PRN (05:28)
[2020-06-25 07:16] LABS: Basophils # (auto) 0.02 K/uL (0-0.2); Basophils % (auto) 0.2 %; Eosinophils # (auto) 0.34 K/uL (0-0.5); Eosinophils % (auto) 4.2 %; Hematocrit (blood only) 34.4 % (37-47); Hemoglobin 11.5 g/dL (12.0-16.0); Immature Granulocytes # (auto) 0.02 K/uL (0.00-0.02); Immature Granulocytes % (auto) 0.2 %; Lymphocytes # (auto) 2.27 K/uL (1.2-3.4); Mean Corpuscular Hemoglobin 32.3 pg (25-34); Mean Corpuscular Hgb Conc 33.4 g/dL (32-36); Mean Corpuscular Volume 96.6 fL (80-100); Mean Platelet Volume 9.4 fL (7.4-10.4); Monocytes # (auto) 0.74 K/uL (0.11-0.59); Monocytes % (auto) 9.1 %; Neutrophils # (auto) 4.73 K/uL (1.4-6.5); Neutrophils % (auto) 58.3 %; Platelet Count 330 K/uL (130-400); RDW Coefficient of Variation 12.8 % (11.5-14.5); RDW Standard Deviation 45.4 fL (36.4-46.3); Red Blood Count 3.56 M/uL (4.2-5.4); White Blood Count 8.12 K/uL (4.8-10.8)
[2020-06-25] MEDS: ACETAMINOPHEN 325 MG TAB PO PRN (07:31)
[2020-06-25 07:54] LABS: BUN Creatinine Ratio 10.1 (10-20); Calcium 8.4 mg/dl (8.5-10.1); Creatinine Clr Calc Pharmacy 84.7 ml/min; Est GFR (African American) 93.9; Potassium 3.5 mmol/L (3.5-5.1)
[2020-06-25] MEDS ORDERED: oxyCODONE HCL IR 5 MG TAB (IMMEDIATE RELEASE) PO PRN ×2 (08:29)
[2020-06-25] MEDS ORDERED: ACETAMINOPHEN 325 MG TAB PO SCH ×2 (08:30→15:00)
[2020-06-25] MEDS: KETOROLAC 30 MG/ML VIAL IV SCH ×2 (09:03→15:06)
--- NOTE | 2020-06-25 09:56 | Surgery Progress Note ---
Date of Service June 25, 2020 Assessment & Plan (1) Acute appendicitis: POD#2 laparoscopic converted to open appendectomy WBC 8.1, VSS and patient afebrile Complaining of abdominal pain this AM, tender robert-incisionally. No signs of infection. MICHAEL drain serosang For pain control we will schedule her Toradol and Tylenol, add prn Oxycodone and keep prn IV dilaudid for breakthrough Continue IV abx, diet as tolerates, encourage ongoing activity, Will check up on later today, if improvement in symptoms can consider discharge later today vs tomorrow Admission and Anticipated Discharge Date Admission Date: June 23, 2020 Supervising Physician Co-Signing Physician Notes Patient seen and examined, labs reviewed, agree with above. POD #2 laparoscopic converted to open appendectomy for perforated retrocecal appendicitis. Overall doing well, had some pretty significant pain again overnight and this morning. She has been walking and tolerating diet. On exam she is afebrile with stable vitals. Her abdomen is soft, appropriately tender to palpation. Dressings removed, incisions with henrietta, no e/o infection. MICHAEL with ss drainage. White blood cell count 8.12 with no left shift, other labs unremarkable. We will continue on IV antibiotics, diet as tolerated, keep MICHAEL in place. Main issue is pain control, will schedule toradol and add oxycodone IR for pain control. Potential discharge in 24 to 48 hours if patient continues to improve. She will be discharged on oral antibiotics. Subjective Patient seen, tearful this AM in pain in her lower abdomen. Has been taking prn Tylenol, toradol, and dilaudid. Physical Exam Physical Exam: awake/alert Gastrointestinal (Abdomen): Inspection/Auscultation: + abdominal surgical incision (c/d/i with surgical henrietta in place. no signs of infection) and + abdominal surgical drain present (serosang. 10cc) Percussion/Palpation: + abdomen tender (robert-incisionally) and abdomen soft Results & Data ([facility]) Vital Signs (Past 12 Hours) Vital Signs Temp Pulse Resp BP Pulse Ox 06/25/20 07:20 36.7 C 73 18 116/79 90 06/25/20 00:34 36.8 C 70 18 115/75 93 PG Care Time/CCT Total # of Minutes Spent Total Time Spent with Patient: Total time spent is greater than 50% in coordination of care (as documented) at patient's floor/unit and/or counseling patient: Coding Level of Care Code None Diagnoses Acute appendicitis K35.32 Acute appendicitis type: with localized peritonitis Appendicitis abscess presence: without abscess Appendicitis gangrene presence: without gangrene Appendicitis perforation presence: with perforation (1) Acute appendicitis Acute appendicitis type: with localized peritonitis Appendicitis abscess presence: without abscess Appendicitis gangrene presence: without gangrene Appendicitis perforation presence: with perforation Qualified Code(s): K35.32 - Acute appendicitis with perforation and localized peritonitis, without abscess
--- NOTE | 2020-06-26 11:51 | Discharge Summary ---
Date of Service June 26, 2020 Admission HPI Per Admitting Provider 50 y/o female with abdominal pain that began 4 days ago and has been increasing. Woke up this morning with severe RLQ pain. No fevers or chills. Was scheduled for screening colonoscopy later this week and had recent COVID tesing. Had some tea early this morning, nothing to eat since yesterday. Principal Diagnosis Perforated appendicitis Discharge Exam Constitutional WD/WN, vitals as above Gastrointestinal (Abdomen) Inspection/Auscultation: + abdominal surgical incision (clean, dry); abdomen not distended Percussion/Palpation: abdomen soft Discharge Data Allergies Allergy/AdvReac Type Severity Reaction Status Date / Time morphine Allergy Intermediate Hives Verified 06/23/20 14:27 Consultations 06/23/20 14:35 ED Decision to Admit Stat Procedures Performed Operation Date: 06/23/20 09:00 Actual Procedures p Attempted Laparoscopic Converted (Not Applicable) - Anastacio Marshall DO, FACS s Appendectomy(Not Applicable) - Anastacio Marshall DO, FACS Ordered Studies 06/23/20 11:09 CT abd pelvis IV con only Stat Hospital Course (1) Acute appendicitis: 50 y/o female presented to the ER with abdominal pain for 4 days. White count was 9,[address] was consistent with acute appendicitis, likely perforated. She was taken to the operating room for laparoscopic appendectomy which was converted to open due to inflammation related to perforation. She was transferred to the surgical floor and continued on IV Zosyn. Her pain control was marginal on POD 1 and her white count had risen slightly to 11. By the second day she was tolerating oral analgesics and her white count had improved to 8. MICHAEL drain was removed and she was stable for discharge home on oral antibiotics. Total Time Total Time Spent Total Time Spent (In Minutes): 15 Discharge Plan Discharge Items Patient Disposition: Home - Self-Care Reason For Visit: APPENDICITIS Discharge Diagnosis: laparoscopic converted to open appendectomy Activity: Per Instructions section Lifting: No more than 10 pounds Bathing Comment: may shower; no soaking in tubs/pools Exercise/Sports: Wait until after follow-up appointment Driving/Machine Use: do not resume driving while taking narcotics for pain Non-emergency contact: Surgeon Call non-emergency contact if: you have any medication questions, your symptoms worsen, your pain is not controlled, your pain is worsening, your pain is concerning for you, you have a fever, your temperature is above 101.5, your wound has increased redness, your wound has increased drainage and your wound pain has increased Follow-up/Referrals: Micheline Quezada MD [Primary Care Provider] - Anastacio Marshall, SAMREEN PICHARDO [Physician] - (Please call to schedule follow up in clinic within 1-2 weeks) Diet: Regular Addtl Attending Provider Instructions: You may purchase Tylenol and/or Ibuprofen over the counter if needed for additional pain control. - Tylenol 650mg orally every 4-6 hours, as needed for pain. Do NOT exceed >3grams of Acetaminophen within a 24 hour time period. - Ibuprofen 400mg-600mg orally every 6-8 hours, as needed for pain. Take with food. Please change your surgical drain site daily with dry 4x4 gauze and adhere with medical tape until it has healed. You have surgical henrietta in place that will be removed at your follow up appointment Please complete the full course of antibiotic prescribed to you Pending Studies at Discharge: Yes Studies:: surgical pathology Stand-Alone Forms: [facility], Work/School Release (Inpt), Smoking Cessation Medications and DC Order Prescriptions: New amoxicillin-pot clavulanate [Augmentin] 875-125 mg tablet 1 tab PO BID Qty: 14 RF: 0 oxycodone 5 mg tablet 5 - 10 mg PO .[id number] PRN (Reason: pain, for initial therapy, max 6 tabs per day) Qty: 15 RF: 0 Continued lorazepam 0.5 mg tablet 0.25 - 0.5 mg PO BID PRN (Reason: anxiety) Qty: 60 RF: 0 multivitamin Tablet 1 tab PO QAM RF: 0 Collagen Plus Vitamin C 125-740 mg Capsule 1 cap PO QAM RF: 0 Discharge Orders: Discharge Order (Routine); Ordered 06/25/20 Ordered By: Clemencia Nevarez/Other Patient Handouts: DVT Post Op Prevention Admission Data Admit Date/Time: 06/23/20 18:21 Attending Provider: Anastacio Marshall Admit Provider: Anastacio Marshall Primary Care Provider: Micheline Quezada Other Providers: Anastacio Marshall Other Interventions: Discharge Summary Assessment (RN) Last Done: 06/25/20 15:46 Coding Level of Care Code D/C Day Management <30 mins Diagnoses Acute appendicitis K35.32 Acute appendicitis type: with localized peritonitis Appendicitis abscess presence: without abscess Appendicitis gangrene presence: without gangrene Appendicitis perforation presence: with perforation
== END 2020-06-25 16:48 | disposition home or self-care (01) ==
LOC: ED 09:12 → 3W 09:12